=== PATIENT | female | born 1955 | race Caucasian/White ===

== ENCOUNTER 2022-02-18 11:52 | Outpatient (REF) | payer OTHER, SELFPAY ==
[2022-02-18 13:49] LABS: MANUAL DIFF FLAG NO
[2022-02-18 13:56] LABS: Basophils Percent Auto 0.8 % (0-2); Eosinophils Absolute Auto 0.1 X10*3/uL (0.0-0.4); Eosinophils Percent Auto 2.3 % (0-4); Hematocrit 45.8 % (37.0-47.0); Hemoglobin 15.1 g/dl (12.0-16.0); Imm Gran Abs Auto 0.01 X10*3/uL (0.00-0.03); Imm Gran Pct Auto 0.2 % (0.0-0.4); Lymphocytes Absolute Auto 2.1 X10*3/uL (1.2-4.9); Lymphocytes Percent Auto 39.4 % (20-40); Mean Corpuscular Hemoglobin 31.1 pg (27.0-33.0); Mean Corpuscular Volume 94.2 fL (80.0-98.0); Mean Platelet Volume 10.4 fL (9.4-12.3); Monocytes Absolute Auto 0.4 X10*3/uL (0.1-1.2); Neutrophils Absolute Auto 2.6 x10*3/uL (2.0-8.3); Neutrophils Percent Auto 49.3 % (45-73); Platelet Count 222 X10*3/uL (160-400); Red Blood Count 4.86 X10*6/uL (4.20-5.50); White Blood Count 5.3 X10*3/uL (4.8-10.8)
[2022-02-18 14:22] LABS: Alanine Aminotransferase 8 U/L (0-31); Albumin Level 4.6 g/dL (3.5-5.0); Alkaline Phosphatase 83 U/L (39-117); Anion Gap 15 (12-20); Aspartate Amino Transferase 15 U/L (5-31); Bilirubin Total 0.5 mg/dL (0.0-1.0); Blood Urea Nitrogen 10 mg/dL (9-16); Calcium 9.7 mg/dL (8.4-10.2); Carbon Dioxide 27 mmol/L (22-29); Chloride 104 mmol/L (96-108); Cholesterol 188 mg/dL; Estimated Glomerular Filt Rate > 60; Glucose Fasting 88 mg/dL (60-99); HDL Cholesterol 55 mg/dL; LDL Cholesterol Calculated 116 mg/dl; Potassium 4.9 mmol/L (3.3-5.1); Sodium 141 mmol/L (135-145); Total Protein 7.2 g/dL (6.5-8.0); Triglycerides 85 mg/dL
[2022-02-18 14:54] LABS: Thyroid Stimulating Hormone 0.94 uIU/mL (0.32-4.0); Vitamin D 25-OH Total 31.2 ng/mL (>30)
== END 2022-02-18 11:53 | disposition home or self-care (01) ==
LOC: HO.10HDL 11:52
PROVIDERS: Visit Provider Internal Medicine
DX: Z00.01 Encounter for general adult medical examination with abnormal findings (principal); F32.2 Major depressive disorder, single episode, severe without psychotic features; I10 Essential (primary) hypertension; J44.9 Chronic obstructive pulmonary disease, unspecified; Z72.0 Tobacco use
CPT/HCPCS: 36415; 80053; 80061; 82306; 84443; 85025

== ENCOUNTER 2023-07-20 10:20 | Outpatient (AMB) | payer OTHER, SELFPAY ==
--- NOTE | 2023-07-20 11:07 | AM.OFFWIN_ITS ---
Intake Vital Signs 07/20/23 11:16 Weight 170 lb BP 110/60 Blood Pressure Location Rt brachial Position Sitting Pulse 93 Pulse Source Pulse Oximeter Temp 97.8 F Temp Source Oral Pulse Oximetry (%) 95 Oxygen Delivery Method Room Air Intake Visit Reasons: difficult breathing/cough/phlegm(COPD)[phone] Intake Note: Patient here for SOB that has been present for about 1 month Patient Tobacco Use Status: Current everyday Tobacco user Allergies pseudoephedrine [From Sudafed] Adverse Reaction (Severe, Verified 07/20/23 11:42) Hallucinations codeine Adverse Reaction (Mild, Verified 07/20/23 11:42) GI issues Medication List - Last Reconciled 07/20/23 by Jeremi Ash MD azithromycin take 500 mg today (day 1), then 250 mg for 4 days (days 2-5) PO prednisone 60 mg (3 x 20 mg) PO DAILY HPI difficult breathing/cough/phlegm(COPD)[phone] HPI Details Patient presents for a sick visit. Reporting symptoms of sinus congestion, sore throat and difficulty swallowing. Low-grade fever. No family member is sick. No recent travel. Patient reports symptoms of malaise and fatigue. [facility]. Many of other residents are having similar complaints. [facility] Social History Patient Tobacco Use Status: Current everyday Tobacco user Physical Exam Vital Signs: Last Vital Signs Temp 97.8 F 07/20/23 11:16 Pulse 93 07/20/23 11:16 BP 110/60 07/20/23 11:16 Pulse Ox 95 07/20/23 11:16 Oxygen Delivery Method Room Air 07/20/23 11:16 Assessment & Plan Assessment & Plan (1) Upper respiratory tract infection: Code(s): J06.9 - Acute upper respiratory infection, unspecified Plan Antibiotics ordered. Increase fluid intake. Tylenol for aches and pains. If symptoms worsen, follow-up here for a recheck. Medications: New azithromycin take 500 mg today (day 1), then 250 mg for 4 days (days 2-5) PO 6 tabs 0RF prednisone 60 mg (3 x 20 mg) PO DAILY 9 tabs 0RF Coding Level of Care Code Est Pt Level 3 (16883) Diagnoses Upper respiratory tract infection J06.9
[2023-07-20 11:16] VITALS: BP 110/60; PULSE 93; TEMP 36.6; O2SAT 95
== END 2023-07-20 12:06 | disposition home or self-care (01) ==
PROVIDERS: Visit Provider Internal Medicine
DX: J06.9 Acute upper respiratory infection, unspecified (principal)
CPT/HCPCS: 99213

== ENCOUNTER 2023-09-02 11:10 | Outpatient (AMB) | payer OTHER, SELFPAY ==
[2023-09-02 11:17] VITALS: BP 120/60; PULSE 84; O2SAT 95; BMI 24.7
--- NOTE | 2023-09-02 11:17 | MHC.OFFWIV ---
Intake Vital Signs 09/02/23 11:17 Height 5 ft 4 in Weight 144 lb BMI 24.7 BP 120/60 Blood Pressure Location Lt brachial Position Sitting Pulse 84 Pulse Source Pulse Oximeter Pulse Oximetry (%) 95 Oxygen Delivery Method Room Air Intake Visit Reasons: EP Upper Respiratory infection Intake Note: pt is here today for upper respiratory infection started 1 week ago Patient Tobacco Use Status: Current everyday Tobacco user Allergies pseudoephedrine [From Sudafed] Adverse Reaction (Severe, Verified 09/02/23 11:19) Hallucinations codeine Adverse Reaction (Mild, Verified 09/02/23 11:19) GI issues Do you need a note to return to daycare/school/sports/work: No HPI HPI Comments History of Present Illness Details She presents with URI x 1 week + sick contacts and lives at skilled nursing + smoker + congestion, cough with SOB and green phlegm She is in waiting for PCP; has used treligy in past. she takes primatine OTC for asthma She has COPD No fevers or chills No ear pain No other OTC medicine taken [facility] Social History Patient Tobacco Use Status: Current everyday Tobacco user Review of Systems Const Denies chills and Denies fever(s) ENT Denies otalgia, Reports nasal discharge and Denies sinus pressure Card Denies chest pain and Reports dyspnea Resp Reports chest congestion, Reports cough, Reports dyspnea and Reports wheezing Musc Denies myalgias Aller/Immun Reports wheezing Physical Exam Vital Signs: Last Vital Signs Pulse 84 09/02/23 11:17 BP 120/60 09/02/23 11:17 Pulse Ox 95 09/02/23 11:17 Oxygen Delivery Method Room Air 09/02/23 11:17 BMI result Body Mass Index 24.7 General: Non-toxic, NAD. Speaking full sentences. Skin: Warm dry throughout Eye: EOMI HENT: Airway patent. Uvula midline. No pharyngeal erythema or edema. No [employer]. Bilateral canals clear. TM non-erythematous, non-bulging. No TM perforation or hemotympanum noted. Respiratory: Sight decreased R base but otherwise no rales or wheeze. Cardiac: RRR. No murmur MSK: Full ROM extremities. Neurology: A/O. No aphasia or facial droop. Gait without abnormality Psych: Good mood and affect Assessment & Plan Assessment & Plan (1) Bronchitis: Code(s): J40 - Bronchitis, not specified as acute or chronic Plan: Patient seen and evaluated. Will cover with azithromycin due to smoking hx, s/s Azithromycin with food Albuterol prn SOB F/U for new PCP ER if worse Patient gave verbal understanding and had no additional questions or concerns at time of discharge All questions answered Medications: New albuterol sulfate 90 mcg/actuation 1 inh inhalation QID PRN 8.5 grams 0RF shortness of breath or wheezing azithromycin start on day 2 of therapy 250 mg PO DAILY 6 tabs 0RF 6 days Coding Level of Care Code Est Pt Level 3 (94908) Diagnoses Bronchitis J40
== END 2023-09-02 12:09 | disposition home or self-care (01) ==
PROVIDERS: Visit Provider Physician Assistant
DX: J40 Bronchitis, not specified as acute or chronic (principal)
CPT/HCPCS: 99213